=== PATIENT | female | born 1945 | race Caucasian/White ===

== ENCOUNTER → 2018-09-09 | Outpatient (CLI) | payer MEDICARE, OTHER ==
[~2018-09-09] MED LIST: ASCO100T15 PO; CHOL400C10 PO; DOCU-416 PO; HYDR-317 PO; IBUP600T22 PO; MAGN250T34 PO; MIRA50TA PO; MULT1TAB54 PO; OMEG-36 PO; OXYB15TA17 PO; PHEN200T32 PO; PRED5DRO34 OU; SULF-198 PO; VITA100T4 PO; VITA1CAP46 PO
--- NOTE | 2018-09-09 10:28 | RADIOLOGY IMAGING REPORT ---
FACILITY: [facility] PATIENT NAME: Caty Boyer : 1945 MR: [id number] V: [id number] EXAM DATE: ORDERING PHYSICIAN: JOSE A OLIVARES TECHNOLOGIST: Location: [facility] Patient: Caty Boyer : 1945 Visit/Account:[id number] Date of Sevice: 09/09/2018 ABDOMEN PELVIS ESWL CYSTO W/O HISTORY: Follow-up bladder stone TECHNIQUE: Axial images acquired through the abdomen/pelvis. Coronal and sagittal reformatting also performed. No IV contrast administered.Dose Lowering Technique One of the following dose optimization techniques was utilized in the performance of this exam: Autom ated exposure control; adjustment of the mA and/or kV according to the patient's size; or use of an i terative reconstruction technique. Specific details can be referenced in the facility's radiology C T exam operational policy. COMPARISON: July 30, 2017 FINDINGS: Visualized lung bases: Negative. Hepatobiliary: Negative. Spleen: Negative. Adrenals: Negative. Pancreas: Negative. Kidneys ureters and bladder: Again noted are the two contiguous calculi which appeared now to be fuse d projecting posterior to the left side of the urinary bladder minimally increased in size now measur ing 1.6 x 1.1 x 1 cm as opposed to 1.6 x 0.8 x 1.1 cm. This may be within a posterior bladder divert iculum actually external to the bladder. This does not appear to be within the distal left ureter No demonstration of nephrolithiasis hydronephrosis or hydroureter Genitalia: Postsurgical changes from hysterectomy GI: There is extensive colonic diverticulosis although no CT evidence of acute diverticulitis Vessels/spaces/nodes: Negative. Bones/soft tissues: Moderate spondylotic changes L5-S1 Additional findings: None pertinent. IMPRESSION: There are two contiguous calculi projecting just posterior to the left-sided the bladder which now ap pear to be fused minimally increased in size measuring 1.6 x 1 x 1.1 cm as opposed 1.6 x 0.8 x 1.1 cm . These may be within a posterior bladder diverticulum or actually external to the bladder. This do es not appear to be within the distal left ureter Additional chronic findings as described Report Dictated By: Emily Ackerman MD at 09/09/2018 10:15 AM Report E-Signed By: Emily Ackerman MD at 09/09/2018 10:24 AM DREWN:LAURY
== END ==
LOC: CT 00:12
PROVIDERS: ATTEND Urology
DX: N21.0 Calculus in bladder (principal); Z90.710 Acquired absence of both cervix and uterus; K57.30 Diverticulosis of large intestine without perforation or abscess without bleeding; M47.897 Other spondylosis, lumbosacral region; N32.3 Diverticulum of bladder
CPT/HCPCS: 74176

== ENCOUNTER → 2018-09-09 | Outpatient (CLI) | payer MEDICARE, OTHER ==
--- NOTE | 2018-09-09 10:11 | RADIOLOGY IMAGING REPORT ---
[place] [facility] [place] NAME: CAMPOS HO : [id number] MR: [id number] V: [id number] EXAM DATE: [id number] ORDERING PHYSICIAN: CHELA GUZMAN TECHNOLOGIST: Rebeka Garcia PROCEDURE:BILATERAL DIGITAL SCREENING MAMMOGRAM WITH CAD ASSISTED INTERPRETATION & 3D TOMOSYNTHESIS COMPARISON:Prior mammograms 09/06/17, 04/07/15, 01/19/13, 11/16/11. INDICATIONS:screening FINDINGS: A small to moderate amount of fibroglandular tissue is seen throughout the breasts. The parenchymal pattern has remained stable allowing for difference in mammographic technique & patient positioning. There is no evidence of malignant appearing mass, malignant appearing calcifications or other secondary sign of malignancy in either breast. DIAGNOSTIC CATEGORY 1--NEGATIVE. RECOMMENDATIONS: ROUTINE MAMMOGRAM AND CLINICAL EVALUATION. IMPRESSION: BIRADS 1: Negative. No significant abnormality is seen. Dictated by: Emily Ackerman M.D. on 09/09/2018 at 9:48 Transcribed by: STERLING on 09/09/2018 at 9:56 Approved by: Emily Ackerman M.D. on 09/09/2018 at 10:09 [facility]
== END ==
LOC: MAMO 00:12
PROVIDERS: ATTEND Physician Assistant
DX: Z12.31 Encounter for screening mammogram for malignant neoplasm of breast (principal); Z80.3 Family history of malignant neoplasm of breast
CPT/HCPCS: 77063; 77067

== ENCOUNTER → 2019-05-18 | Outpatient (CLI) | payer MEDICARE, OTHER ==
[~2019-05-18] MED LIST changes: +ASCO-342 PO; +CHOL100058 PO; +MV-M1TAB55 PO; +VIT-22 PO; +VITA-200 PO
--- NOTE | 2019-05-18 10:02 | RADIOLOGY IMAGING REPORT ---
FACILITY: PATIENT NAME: Caty Boyer : 1945 MR: [id number] V: [id number] EXAM DATE: ORDERING PHYSICIAN: ERICA CACERES TECHNOLOGIST: Location: [facility] Patient: Caty Boyer : 1945 Visit/Account:[id number] Date of Sevice: 05/18/2019 DEXA Scan Clinical history: Osteopenia. Comparison: DEXA scan from 01/25/2012. LUMBAR SPINE: The bone mineral density (BMD) measured from L1-L4 correlates with a Z-score of 1.4 and a T-score of -0.4 which is Normal as defined by the World Health Organization. The corresponding risk of fracture in the lumbar spine is Not increased compared with a young adult reference population. This value h as decreased by 3.2 % since the prior study. More than 5% change is considered significant. HIP: Bone mineral density (BMD) measured in the LEFT total hip region correlates with a Z-score -0.2 and a T-score of -2 which is osteopenia as defined by the World Health Organization. The corresponding ri sk of fracture in the hip is 4 times increased compared to a young adult reference population. This v alue has decrease by 7.9 % since the prior study. More than 5% change is considered significant. T score left femoral neck -2.3 Bone mineral density (BMD) measured in the Femoral Neck region measures 0.725 g/cm?. IMPRESSION: 1. Lumbar spine: Normal. There has been 3.2% decrease in the bone mineral density since the previou s exam. 2. Left Total Hip: Osteopenia. There has been 7.9% decrease in the bone mineral density since the p revious exam. 3. Femoral Neck: Bone Mineral Density is 0.725 g/cm? The next DEXA scan of this patient should include the following sites: L1-L4 and the left hip. FRAX? WHO Fracture Risk Assessment Tool link: <http://www.shef.ac.uk/FRAX/tool.jsp?locationValue=9> PLEASE NOTE: 1) The World Health Organization defines low BMD as follows: T-score Normal > -1 Osteopenia < -1 and > -2.5 Osteoporosis < -2.5 without fractures Established osteoporosis < -2.5 with fractures 2) In general, you may wish to consider: Diagnosis Treatment Follow-up DEXA Normal BMD Prevention 2-3 years Osteopenia Prevention/therapy 1-2 years Osteoporosis Therapy Yearly 3) Fracture risk estimated from the T-score is more accurate for vertebral fractures (often spontane ous) than for hip fractures. Report Dictated By: Emily Ackerman MD at 05/18/2019 9:54 AM Report E-Signed By: Emily Ackerman MD at 05/18/2019 9:55 AM WSN:[id number]
== END ==
LOC: RAD 01:07
PROVIDERS: ATTEND Family Medicine
DX: M85.852 Other specified disorders of bone density and structure, left thigh (principal)
CPT/HCPCS: 77080